=== PATIENT | male | born 1940 | race Hispanic/Latino ===

== ENCOUNTER 2023-06-08 08:11 | Day surgery (SDC) | payer MEDICARE ==
[2023-06-07 10:49] LABS: BASOPHILS # (AUTO) 0.02 K/uL (0.00-0.20); BASOPHILS % (AUTO) 0.4 % (0.0-5.0); EOSINOPHILS # (AUTO) 0.08 K/uL (0.00-0.70); EOSINOPHILS % (AUTO) 1.7 % (0.0-8.0); HEMATOCRIT 42.1 % (42-54); IMMATURE GRANULOCYTE ABSOLUTE 0.02 K/uL (0-1); LYMPHOCYTES # (AUTO) 2.1 K/uL (1.0-4.8); LYMPHOCYTES % (AUTO) 44.3 % (21.0-51.0); MEAN CORPUSCULAR HEMOGLOBIN 28.3 pg (27.0-33.0); MEAN CORPUSCULAR HGB CONC 32.8 g/dL (32.0-36.0); MEAN CORPUSCULAR VOLUME 86.3 fL (79-99); MONOCYTES # (AUTO) 0.4 K/uL (0.1-1.0); MONOCYTES % (AUTO) 7.9 % (3.0-13.0); NEUTROPHILS # (AUTO) 2.1 K/uL (1.8-7.7); NEUTROPHILS % (AUTO) 45.3 % (40.0-77.0); PLATELET COUNT (AUTO) 151 K/uL (130-400); RED BLOOD CELL COUNT(AUTO) 4.88 MIL/uL (4.50-6.20); RED CELL DISTRIBUTION WIDTH 12.9 % (11.0-15.5); WHITE BLOOD COUNT (AUTO) 4.7 K/uL (4.8-10.8)
[2023-06-07 10:56] VITALS: BP 146/80; PULSE 69; RESP 17
[2023-06-07 10:57] LABS: CREATININE 0.9 mg/dL (0.5-1.5); POTASSIUM 4.1 mmol/L (3.5-5.1)
[2023-06-08] VITALS (18 sets, daily range): BP systolic 122–162; BP diastolic 59–82; PULSE 6–88; RESP 8–22
[~2023-06-08] VITALS: Ht 157.5 cm; Wt 60.4 kg
[2023-06-08] MEDS ORDERED: CEFAZOLIN SODIUM 2 GM VIAL ONE (09:51)
[2023-06-08] MEDS ORDERED: LACTATED RINGERS 1000ML 1,000 ML IV ONE (09:51)
[2023-06-08] MEDS ORDERED: LIDOCAINE PF 100MG/5ML (2%) SYRINGE 5ML ONE (11:04)
[2023-06-08] MEDS ORDERED: NEOSTIGMINE 5MG/5ML SYR IV ONE (11:04)
[2023-06-08] MEDS ORDERED: ONDANSETRON 4MG INJ ONE (11:04)
[2023-06-08] MEDS ORDERED: MIDAZOLAM HCL 1 MG/ML 2ML VIAL ONE (11:04)
[2023-06-08] MEDS ORDERED: SUCCINYLCHOLINE CHLORIDE 20 MG/ML 10 ML VIAL ONE (11:04)
[2023-06-08] MEDS ORDERED: GLYCOPYRROLATE 1 MG/5 ML SYRINGE ONE (11:04)
[2023-06-08] MEDS ORDERED: DEXAMETHASONE SOD PHOSPHATE 10MG/ML 1ML VIAL ONE (11:04)
[2023-06-08] MEDS ORDERED: PROPOFOL 10 MG/ML 20ML VIAL IV ONE (11:05)
[2023-06-08] MEDS ORDERED: ROCURONIUM 10MG/1ML SYR 10 MG/ML ML ONE (11:05)
[2023-06-08] MEDS ORDERED: LIDOCAINE 2%-EPI 1:200,000 20 ML VIAL IJ ONE (11:39)
[2023-06-08] MEDS ORDERED: EPHEDRINE SULFATE 50 MG/ML AMPULE ONE (11:41)
[2023-06-08] MEDS ORDERED: FENTANYL CITRATE PF 50 MCG/1 ML 5ML AMP IV ONE (11:48)
[2023-06-08] MEDS ORDERED: BUPIVACAINE/PF 0.5% 10ML VIAL IJ ONE (12:00)
[2023-06-08] MEDS ORDERED: KETOROLAC 30MG VIAL (30MG/ML) ONE (12:02)
[2023-06-08] MEDS ORDERED: BUPIVACAINE/PF 0.5% 10ML VIAL ONE (12:47)
== END 2023-06-08 14:20 | disposition home or self-care (01) ==
LOC: DAH 08:11
PROVIDERS: ATTEND Surgery
DX: L72.3 Sebaceous cyst (principal); L72.12 Trichodermal cyst; E78.5 Hyperlipidemia, unspecified; Z98.890 Other specified postprocedural states; Z79.899 Other long term (current) drug therapy; Z82.49 Family history of ischemic heart disease and other diseases of the circulatory system
CPT/HCPCS: 93005; 80048; 85025; 36415; 11423; 88304; A6260; A4663; A4649; J7120; J3010; J3490 ×4; J1100; J2710; J0330; J2001; J2250; J2704; J2405; J1885; J0690; A6446; A4930; A4215; A4223; A4222; A4221